=== PATIENT | male | born 1960 | race Caucasian/White ===

== ENCOUNTER 2018-08-15 12:06 | Day surgery (SDC) | payer BC ==
[2018-08-15] MEDS ORDERED: PROPOFOL 10 MG/ML VIAL IV ONE (12:07)
[2018-08-15] MEDS ORDERED: FENTANYL PF 100MCG/2ML VIAL IV ONE (12:07)
[2018-08-15] MEDS ORDERED: LIDOCAINE 2% MDV (20MG/ML) 20ML VIAL IV ONE (12:07)
[2018-08-15] MEDS ORDERED: MIDAZOLAM HCL 2MG/2ML VIAL IV ONE (12:07)
--- NOTE | 2018-08-17 09:10 | Operative Note ---
OPERATION: ESOPHAGOGASTRODUODENOSCOPY with biopsy. INDICATION: Gastrointestinal tract bleeding with a negative colonoscopy earlier today. Bleeding seemed to be coming from a higher source. Upper endoscopy is performed at this time for further evaluation. ANESTHESIA: Intravenous sedation was administered by the department of anesthesiology and included Diprivan titrated to effect. PROCEDURE: Following informed consent from this alert individual, including a discussion of the risks and benefits of the procedure and an opportunity for the patient to ask questions, the patient was in the left lateral decubitus position. The Olympus [id number] video endoscope was inserted into the esophagus without resistance. The proximal esophagus had a normal appearance with normal folds and distensibility. The mid esophagus likewise was free from changes. At the distal esophageal segment, there was what appeared to be healed ulceration or erosion at the squamocolumnar junction. There was no bleeding noted. The stomach was entered. The gastric fundus and pars media had some mild superficial erythema with some friable mucosa but no larger ulcerations noted. The pylorus was patent. The duodenal bulb, sweep and descending duodenum examined in a serial fashion demonstrated some mild duodenitis. Again no ulceration was noted. There was no bleeding. The endoscope was advanced into the third portion of the duodenum and no bleeding or bleeding sites identified. The endoscope was then drawn back into the body of the stomach. Retroflexion accomplished following air insufflation failed to demonstrate any additional changes. Sample biopsies were taken from the stomach to assess for Helicobacter pylori and check histology. The endoscope was then straightened and withdrawn back through a normal esophagus except for the distal esophageal healed erosion noted or ulcer noted above. The patient tolerated the procedure well and was returned to the recovery area in stable condition. IMPRESSION: 1. Endoscopically healed distal esophagitis at the GE junction. 2. Antral gastritis without ulcerations noted. 3. Mild duodenitis again without ulcerations noted. 4. No bleeding or bleeding sites identified. RECOMMENDATION: The patient should have capsule endoscopy completed to further evaluate the GI tract. Pending results, double balloon enteroscopy may provide beneficial. As always, thank you for allowing me to participate in the care of your patient. CC: KATIUSKA Zapata
--- NOTE | 2018-08-17 09:10 | Operative Note ---
OPERATION: COLONOSCOPY. INDICATION: Gastrointestinal bleeding. HISTORY: The patient is a very pleasant 57-year-old gentleman who presented to [facility] today for the first time for anticipated colonoscopy. He reports approximately 10 years ago while vacationing in [facility], he developed intense gastrointestinal tract bleeding. He was transferred to different hospitals as the bleeding stopped and started again. He ultimately underwent a colon resection with ileocolonic anastomosis and since that time has done fairly well. More recently, he started noticing episodes of blood clots per rectum. He generally passes between 2-5 stools a day, which has been his fairly regular pattern since the surgery. Colonoscopy was performed at this time for further evaluation. The patient reported that he had 6 inches of colon left. ANESTHESIA: Intravenous sedation was administered by the department of anesthesiology and included Diprivan titrated to effect. PROCEDURE: Following informed consent from this alert individual including a discussion of the risks and benefits of the procedure and an opportunity for the patient to ask questions, the patient was in the left lateral decubitus position. A digital rectal examination was performed. No abnormalities were noted. There was some mild stenosis noted which he reported to me prior to the exam. Following this, the Olympus [id number] video endoscope was inserted into the rectum without resistance. The rectal mucosa had a normal appearance with normal folds and distensibility. The colonoscope was advanced up into the descending colon to a total of approximately 50 cm from the anal verge. At this point, there was an anastomosis noted with the small bowel. The colon itself appeared to be completely unremarkable. There were no polyps, tumors, ulcerations, erosions, or diverticula noted. The anastomosis seemed quite healthy. Attempts at cannulating the more proximal small bowel were unsuccessful due to the positioning of the anastomosis and need to retroflex the scope to enter the more proximal small bowel. The tip would not advance. The blind limb of the small bowel was noted to be unremarkable. While watching at the anastomosis, what appeared to be a clot of blood entered the colon. Again, advancement up into the small bowel was not possible at this time endoscopically. From this point then, the colonoscope was slowly withdrawn. Again no changes were noted in the bowel. The preparation was good although washing and suctioning was employed vigorously to remove some retained liquid and semi-solid stool. The endoscope was then drawn back into the rectum where retroflexion accomplished following air insufflation failed to demonstrate any changes. The instrument was removed. The patient tolerated the procedure well and was returned to the recovery area in stable condition. IMPRESSION: 1. Approximately 50 cm of colon remains. 2. Ileocolonic anastomosis noted and seemed to be healthy in appearance. 3. Clots of blood were noted passing into the anastomotic site through the small bowel; however, the small bowel could not be cannulated due to the positioning. Retroflexion in the anastomotic site was needed to visualize the terminal ileal segment emptying into the anastomotic site. As a result, the endoscope could not be advanced at this time. RECOMMENDATIONS: It would be beneficial for the patient to have a capsule endoscopy to see if the bleeding site can be identified. He may also require double balloon enteroscopy. I will discuss this with him as well as referral to a tertiary center for further evaluation. As always, thank you for allowing me to participate in the care of your patient. CC: KATIUSKA Zapata
== END 2018-08-15 15:30 | disposition home or self-care (01) ==
LOC: HOP 12:06
PROVIDERS: ATTEND Internal Medicine Gastroenterology
DX: K92.2 Gastrointestinal hemorrhage, unspecified (principal); Z87.19 Personal history of other diseases of the digestive system; Z90.49 Acquired absence of other specified parts of digestive tract; K62.4 Stenosis of anus and rectum; K63.89 Other specified diseases of intestine; K29.80 Duodenitis without bleeding; K29.70 Gastritis, unspecified, without bleeding; K31.9 Disease of stomach and duodenum, unspecified; R10.9 Unspecified abdominal pain; I10 Essential (primary) hypertension; E11.9 Type 2 diabetes mellitus without complications
CPT/HCPCS: 45378; 43239; 00813; J3010